=== PATIENT | female | born 1965 | race Caucasian/White ===

== ENCOUNTER 2021-09-10 10:10 | Inpatient (IN) | payer OTHER ==
[~2021-09-10] VITALS: Ht 172.7 cm; Wt 108.9 kg
[~2021-09-10 10:10] MED LIST: CYMBALTA60 MG PO; DULOXETINE HCL30 MG PO; GABAPENTIN300 MG PO; GABAPENTIN600 MG PO; HYDROCODON-ACE1 EAC2 PO; LIDOCAINE 5% P1 EACH TOP; LIDOCAINE30 G1 TOP; NEURONTIN300 MG PO; NORCO 7.5-3251 EACH PO
[2021-09-10 11:57] LABS: BASOPHIL 0.3 % (0-2); EOSINOPHIL 0 % (0-5); HCT 48.4 % (37.0-47.0); HGB 16.1 g/dl (12.5-16.0); LYMPHOCYTE 8.5 % (15-48); MCH 27.6 pg (25.0-31.0); MCHC 33.3 g/dL (32.0-36.0); MONOCYTE 4.8 % (0-12); NEUTROPHIL 85.9 % (41-80); NRBC 0; PLT 179 K/uL (150-400); RBC 5.83 M/uL (4.20-5.40); RDW 13.1 % (11.5-14.0)
[2021-09-10 11:57] LABS: INFLUENZA A NAA NEGATIVE (NEGATIVE)
[2021-09-10 12:09] LABS: CORONAVIRUS 2019 SARS-COV-2 POSITIVE (NEGATIVE)
[2021-09-10 12:46] LABS: BILIRUBIN NEGATIVE (NEGATIVE); BLOOD 1+ Ery/uL (NEGATIVE); CLARITY CLEAR (CLEAR); COLOR YELLOW (YELLOW); GLUCOSE (U) 3+ mg/dL (NORMAL); LEUKOCYTES NEGATIVE Leu/uL (NEGATIVE); NITRITE NEGATIVE (NEGATIVE); PROTEIN NEGATIVE (NEGATIVE); UROBILINOGEN 0.2 mg/dL (0.2-1.0); pH 5.5 (5.0-9.0)
[2021-09-10 12:59] LABS: SQUAMOUS EPITHELIAL CELLS RARE; URINARY RBC RARE
[2021-09-10 13:15] LABS: ALBUMIN 3.4 g/dL (3.4-5.0); BILIRUBIN - TOTAL 0.6 mg/dL (0.2-1.0); BUN/CREAT RATIO (CALC) 36.2 RATIO; C-REACTIVE PROTEIN 11.3 mg/dL (<=0.90); CREATININE 0.69 mg/dL (0.51-0.95); GLOBULIN (CALCULATION) 4.7 g/dL; MAGNESIUM 2.3 mg/dL (1.8-2.4); POTASSIUM 5.2 mmol/L (3.5-5.1); TOTAL PROTEIN 8.1 g/dL (6.4-8.2)
[2021-09-10 17:46] LABS: CREATININE 0.6 mg/dL (0.51-0.95)
[2021-09-10 21:49] LABS: BUN/CREAT RATIO (CALC) 29.7 RATIO; CREATININE 0.74 mg/dL (0.51-0.95); POTASSIUM 4.8 mmol/L (3.5-5.1)
[2021-09-10 23:47] LABS: CREATININE 0.6 mg/dL (0.51-0.95); POTASSIUM 4.3 mmol/L (3.5-5.1)
[2021-09-11 01:55] LABS: BUN/CREAT RATIO (CALC) 34.9 RATIO; CREATININE 0.63 mg/dL (0.51-0.95); POTASSIUM 4.5 mmol/L (3.5-5.1)
[2021-09-11 07:10] LABS: BUN/CREAT RATIO (CALC) 42.9 RATIO; CREATININE 0.56 mg/dL (0.51-0.95); POTASSIUM 4.6 mmol/L (3.5-5.1)
--- NOTE | 2021-09-11 09:18 | NUR ---
09/11/21 A referral was received from the ED for diabetic education. Nursing was referred to [facility] for instructions to set up diabetic education via zoom. Nursing was also advised that the PCP has to set up the Outpatient diabetic teaching. Lilly Efren was provided with diabetic community support; [employer].
[2021-09-11 16:50] LABS: BUN/CREAT RATIO (CALC) 39.7 RATIO; CREATININE 0.58 mg/dL (0.51-0.95); POTASSIUM 4.5 mmol/L (3.5-5.1)
[2021-09-11] MEDS ORDERED: MOBIC7.5 M1 PO (18:29)
[2021-09-11] MEDS ORDERED: LISINOPRIL-HCT1 EAC1 PO (18:30)
[2021-09-12 07:00] LABS: ALBUMIN 2.4 g/dL (3.4-5.0); BILIRUBIN - TOTAL 0.3 mg/dL (0.2-1.0); BUN/CREAT RATIO (CALC) 27.3 RATIO; C-REACTIVE PROTEIN 2.9 mg/dL (<=0.90); CREATININE 0.44 mg/dL (0.51-0.95); GLOBULIN (CALCULATION) 3.2 g/dL; POTASSIUM 3.6 mmol/L (3.5-5.1)
[2021-09-12 07:03] LABS: TOTAL PROTEIN 5.6 g/dL (6.4-8.2)
--- NOTE | 2021-09-12 12:58 | NUR ---
09/12/21 Ms. Schwartz lives at home with her spouse. She is employed and able to manage her affairs. - Ms. Schwartz was provided with community diabetic resources.
[2021-09-13 06:45] LABS: CREATININE 0.5 mg/dL (0.51-0.95); POTASSIUM 3.7 mmol/L (3.5-5.1)
[2021-09-13] MEDS ORDERED: INSULIN GL100 UNIT/1 SC (10:54)
--- NOTE | 2021-09-13 13:16 | NUR ---
TC TO PT ROOM SHE IS IN ISOLATION. PT. IS EMPLOYED AND RESIDES WITH HER SPOUSE. AT THIS TIME SHE HAS NO NEEDS.
== END 2021-09-13 14:38 | disposition home or self-care (01) | DRG 637 ==
LOC: FER 10:10 → FMS 09-11 14:30
PROVIDERS: Emergency Medicine; Emergency Medicine Emergency Medical Services; Family Medicine; ADMIT Allergy & Immunology Allergy
DX: E10.10 Type 1 diabetes mellitus with ketoacidosis without coma (principal); U07.1 COVID-19; J12.82 Pneumonia due to coronavirus disease 2019; E86.0 Dehydration; I10 Essential (primary) hypertension; F41.9 Anxiety disorder, unspecified; F32.A Depression, unspecified; K21.9 Gastro-esophageal reflux disease without esophagitis; K76.0 Fatty (change of) liver, not elsewhere classified; M51.36 Other intervertebral disc degeneration, lumbar region; Z90.49 Acquired absence of other specified parts of digestive tract; Z98.890 Other specified postprocedural states; Z98.51 Tubal ligation status; Z79.52 Long term (current) use of systemic steroids; Z79.899 Other long term (current) drug therapy; Z87.891 Personal history of nicotine dependence; Z71.3 Dietary counseling and surveillance
CPT/HCPCS: 36415; 36600; 71045; 80048; 80053; 80061; 81001; 82728; 82803; 82962; 83036; 83605; 83690; 83735; 84145; 84443; 84484; 85025; 86140; 93005; J1650; J1815; J1885; J2405; J3480; J7030; J7120; U0002